=== PATIENT | male | born 2000 | race Caucasian/White ===

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

== ENCOUNTER 2020-01-20 06:00 | Outpatient (RCR) | payer MEDICAID, SELFPAY | END 2020-02-18 23:59 | disposition home or self-care (01) | LOC: TOT 06:00 | PROVIDERS: PCP Family Medicine; Visit Provider Family Medicine | DX: F81.9 Developmental disorder of scholastic skills, unspecified (principal) | CPT/HCPCS: 97530 ==

== ENCOUNTER → 2020-01-22 08:51 | Outpatient (BNVA) | payer MEDICAID, SELFPAY | PROVIDERS: PCP Family Medicine; Visit Provider Psychiatry & Neurology Psychiatry | DX: F84.0 Autistic disorder (principal); F70 Mild intellectual disabilities | CPT/HCPCS: 99213 ==

== ENCOUNTER → 2020-01-29 07:58 | Outpatient (BNVA) | payer MEDICAID, SELFPAY | PROVIDERS: PCP Family Medicine; Visit Provider Psychiatry & Neurology Psychiatry | DX: F84.0 Autistic disorder (principal); F70 Mild intellectual disabilities | CPT/HCPCS: 99213 ==

== ENCOUNTER 2020-02-19 06:00 | Outpatient (RCR) | payer MEDICAID, SELFPAY | END 2020-03-20 23:59 | disposition home or self-care (01) | LOC: TOT 06:00 | PROVIDERS: PCP Family Medicine; Visit Provider Family Medicine | DX: F81.9 Developmental disorder of scholastic skills, unspecified (principal) | CPT/HCPCS: 97530 ==

== ENCOUNTER 2020-03-21 06:00 | Outpatient (RCR) | payer MEDICAID, SELFPAY | END 2020-04-19 23:59 | disposition home or self-care (01) | LOC: TOT 06:00 | PROVIDERS: PCP Family Medicine; Visit Provider Family Medicine | DX: F81.9 Developmental disorder of scholastic skills, unspecified (principal) | CPT/HCPCS: 97530 ==

== ENCOUNTER 2020-04-20 06:00 | Outpatient (RCR) | payer MEDICAID, SELFPAY | END 2020-05-20 23:59 | disposition home or self-care (01) | LOC: TOT 06:00 | PROVIDERS: PCP Family Medicine; Visit Provider Family Medicine | DX: F81.9 Developmental disorder of scholastic skills, unspecified (principal) | CPT/HCPCS: 97530 ==

== ENCOUNTER 2020-05-21 06:00 | Outpatient (RCR) | payer MEDICAID, SELFPAY | END 2020-06-20 23:59 | disposition home or self-care (01) | LOC: TOT 06:00 | PROVIDERS: PCP Family Medicine; Visit Provider Family Medicine | DX: F81.9 Developmental disorder of scholastic skills, unspecified (principal) | CPT/HCPCS: 97530 ==

== ENCOUNTER 2020-06-21 06:00 | Outpatient (RCR) | payer MEDICAID, SELFPAY | END 2020-07-18 23:59 | disposition home or self-care (01) | LOC: TOT 06:00 | PROVIDERS: PCP Family Medicine; Visit Provider Family Medicine | DX: F81.9 Developmental disorder of scholastic skills, unspecified (principal) | CPT/HCPCS: 97535 ==

== ENCOUNTER 2020-07-19 06:00 | Outpatient (RCR) | payer MEDICAID, SELFPAY | END 2020-08-18 23:59 | disposition home or self-care (01) | LOC: TOT 06:00 | PROVIDERS: PCP Family Medicine; Visit Provider Family Medicine | DX: F81.9 Developmental disorder of scholastic skills, unspecified (principal) | CPT/HCPCS: 97530 ==

== ENCOUNTER → 2020-07-20 07:24 | Outpatient (BNVA) | payer MEDICAID, SELFPAY | PROVIDERS: PCP Family Medicine; Visit Provider Psychiatry & Neurology Psychiatry | DX: F84.0 Autistic disorder (principal); F70 Mild intellectual disabilities | CPT/HCPCS: 99213 ==